=== PATIENT | male | born 1970 | race Caucasian/White ===

== ENCOUNTER 2018-05-13 10:12 | Emergency (ER) | payer OTHER ==
[~2018-05-13] VITALS: Ht 175.3 cm; Wt 97.5 kg
[~2018-05-13 10:12] MED LIST: HYDROCODON-ACE1 EAC7 PO; KEFLEX500 MG PO; LOW DOSE ASPIRI81 M1 PO; MULTIVITAMINS1 EAC7 PO; NOHOMEMEDICATIONS
[2018-05-13 10:16] VITALS: BP 125/77
[2018-05-13 11:09] LABS: ABSOLUTE EOSINOPHILS 0.3 thou/uL (0.0-0.7); ABSOLUTE LYMPHOCYTES 2.2 thou/uL (0.8-5.3); ABSOLUTE MONOCYTES 0.7 thou/uL (0.0-1.2); ABSOLUTE NEUTROPHILS 3.7 thou/uL (1.6-8.1); BASOPHILS 0.6 %; EOSINOPHILS 4.1 %; HEMATOCRIT 44.8 % (42.0-52.0); MCH 30.5 pg (26.0-34.0); MCHC 33.4 g/dL (28.0-37.0); MCV 91.2 fL (80.0-100.0); MPV 8.2 fl. (7.2-11.1); NUCLEATED RBCS 0 /100WBC; PLATELET COUNT* 294 thou/uL (150-400); POLYS 53.3 %; RBC 4.92 mil/uL (4.50-6.00); RDW-CV 12.8 % (10.5-14.5)
[2018-05-13 11:15] LABS: ANION GAP 8 mmol/L (7-16); BUN 17 mg/dL (7-18); CALCIUM 8.5 mg/dL (8.5-10.1); CHLORIDE 105 mmol/L (98-107); CO2 26 mmol/L (21-32); CREATININE 0.8 mg/dL (0.6-1.3); GLUCOSE 118 mg/dL (70-99); POTASSIUM 4.1 mmol/L (3.5-5.1); SODIUM 139 mmol/L (136-145)
[2018-05-13 11:21] LABS: APTT 25.9 Seconds (25.0-31.3)
[2018-05-13 11:24] LABS: ALBUMIN 3.6 g/dL (3.4-5.0); ALKALINE PHOSPHATASE 51 U/L (46-116); LIPASE 193 U/L (73-393); SGOT 29 U/L (15-37); SGPT 45 U/L (30-65); TOTAL BILIRUBIN 0.5 mg/dL (<0.1-1.0); TROPONIN-I LEVEL <0.06 ng/mL (<0.06)
--- NOTE | 2018-05-13 17:05 | EXE ---
[place] [address] STRESS ECHOCARDIOGRAM Name: ALMA DANG [address]#: [id number] Admission: 05/13/18 Attend Phys: Kaitlin Hdz, Discharge: Date of : 68 Date of Service: 05/13/18 1704 Report #: [id number] THIS REPORT FOR: //name// APPROVED REPORT Study performed: 05/13/2018 15:15:51 Exam: Stress Echocardiogram Indication: Chest pain Patient Location: In-Patient Stress Nurse: Inés Iglesias RN Room #: ER Supervising Physician: Ron Terry MD Status: routine Ht: 5 ft 9 in HR: 52 bpm BP: 127/78 mmHg Medical History Cardiac Risk Factors: Tobacco History (Former) Procedure The patient underwent an Exercise Stress Test using the Navdeep Protocol. Blood pressure, heart rate, and EKG were monitored. An Echocardiogram was performed by scheme technician in four stages in quad fashion. At peak stress, four selected images were obtained and placed side by side with resting images for comparison. Stress Test Details Stress Test: Exercise stress testing was performed using a Navdeep protocol. HR Resting HR: 52 bpm Max Heart Rate (APMHR): 171 bpm Max HR Achieved: 158 bpm Target HR (85% APMHR): 145 bpm % of APMHR: 92 Recovery HR: 81 bpm HR response to stress: Normal HR response to stress BP Resting BP: 127/78 mmHg Max BP: 194/82 mmHg Recovery BP: 137/81 mmHg ECG Resting ECG: [place] [address] STRESS ECHOCARDIOGRAM Name: ALMA DANG Room: [address]#: [id number] Admission: 05/13/18 Attend Phys: Kaitlin Hdz, Discharge: Date of : 68 Date of Service: 05/13/18 170 Report #: [id number] Stress ECG: no ischemic st-t changes Clinical Reason for Termination: Dyspnea, Maximal effort, Completed protocol Exercise duration: 9 min 43 sec Highest Stage Achieved: Stage 4: 4.2 mph at 16% grade. Exercise capacity: 11.31 METs Pre-Stress Echo The resting Echocardiogram showed normal left ventricular contractility with an estimated Ejection Fraction of about 55-60%. Normal wall motion in all segments on baseline images. Post-Stress Echo The stress Echocardiogram showed normal left ventricular contractility with an estimated Ejection Fraction of about >70%. Normal augmentation of wall motion in all segments on post stress images. Conclusion Clinical Response: Non-ischemic Exercise Capacity: Average Stress ECG Response: Non-ischemic Stress Echo Images: Non-ischemic Other Information Study Quality: Good <ELECTRONICALLY SIGNED> By: Ron Terry MD, [facility] 05/13/18 1704 03 03 Ron Terry MD, [facility] /INF
[2018-05-13] MEDS ORDERED: PREVACID30 MG PO (17:41)
[2018-05-13] MEDS ORDERED: CARAFATE 1 GM TA1 GM PO (17:41)
[2018-05-13 17:57] LABS: CHOLESTEROL 208 mg/dL (<200); HDL CHOLESTEROL 55 mg/dL (>40); TRIGLYCERIDE 112 mg/dL (<150)
[2018-05-13 18:45] VITALS: BP 124/62
[2018-05-14 15:11] LABS: LDL (DIRECT) CHOL 136 mg/dL (0-99)
--- NOTE | 2018-05-14 16:21 | EKG ---
[place] [address] ELECTROCARDIOGRAM REPORT Name: ALMA DANG Room: [facility]#: [id number] Admission: 05/13/18 Attend Phys: Discharge: 05/13/18 Date of : 68 Report #: [id number] THIS REPORT FOR: //name// [facility] ED Test Date: 2018-05-13 Test Time: 10:17:23 Pat Name: ALMA DANG Department: Room: 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 : 1970 Requested By: Shital Flor Order Number: [id number] MD: Ron Terry Measurements Intervals [place] Rate: 54 P: 34 TN: 202 QRS: -20 QRSD: 89 T: 62 QT: 390 QTc: 370 Interpretive Statements Sinus rhythm Borderline prolonged TN interval Borderline left axis deviation RSR' in V1 or V2, probably normal variant Compared to ECG 01/24/2012 05:47:51 RSR' in V1 or V2 now present Sinus tachycardia no longer present Electronically Signed On 05-14-2018 16:20:58 CDT by Ron Terry [email or web address] <ELECTRONICALLY SIGNED> By: Ron Terry MD, [facility] 05/14/18 1620 1017 1017 Ron Terry MD, [facility] /EPI
== END 2018-05-13 19:00 | disposition home or self-care (01) ==
LOC: M.ERS 10:12 → M.TBA-ER 13:43 → M.ERS 13:43
PROVIDERS: Personal Emergency Response Attendant
DX: R07.9 Chest pain, unspecified (principal)

== ENCOUNTER 2019-04-27 13:26 | Emergency (ER) | payer OTHER ==
[~2019-04-27] VITALS: Ht 175.3 cm; Wt 99.8 kg
[~2019-04-27 13:26] MED LIST changes: +CARAFATE 1 GM TA1 GM PO; +PREVACID30 MG PO
[2019-04-27 13:46] LABS: ABSOLUTE BASOPHILS 0.1 thou/uL (0.0-0.2); ABSOLUTE EOSINOPHILS 0.3 thou/uL (0.0-0.7); ABSOLUTE LYMPHOCYTES 2.3 thou/uL (0.8-5.3); ABSOLUTE MONOCYTES 0.6 thou/uL (0.0-1.2); ABSOLUTE NEUTROPHILS 3.6 thou/uL (1.6-8.1); BASOPHILS 1.1 %; EOSINOPHILS 4.8 %; HEMATOCRIT 42.8 % (42.0-52.0); HEMOGLOBIN 14.7 gm/dL (14.0-18.0); LYMPHOCYTES 33.3 %; MCH 31.1 pg (26.0-34.0); MCHC 34.3 g/dL (28.0-37.0); MCV 90.7 fL (80.0-100.0); MONOCYTES 9.1 %; NUCLEATED RBCS 0 /100WBC; PLATELET COUNT* 280 thou/uL (150-400); POLYS 51.7 %; RBC 4.71 mil/uL (4.50-6.00); RDW-CV 12.9 % (10.5-14.5); WBC 6.9 thou/uL (4.0-11.0)
[2019-04-27 13:57] LABS: APTT 25.6 Seconds (25.0-31.3); PROTIME 10.2 Seconds (9.20-11.50)
[2019-04-27 14:04] LABS: ANION GAP 8 mmol/L (7-16); BUN 20 mg/dL (7-18); CALCIUM 8.3 mg/dL (8.5-10.1); CHLORIDE 104 mmol/L (98-107); CO2 27 mmol/L (21-32); CREATININE 0.9 mg/dL (0.6-1.3); GLUCOSE 126 mg/dL (70-99); POTASSIUM 3.7 mmol/L (3.5-5.1); SODIUM 139 mmol/L (136-145)
[2019-04-27 14:15] LABS: ALBUMIN 3.5 g/dL (3.4-5.0); ALKALINE PHOSPHATASE 77 U/L (46-116); CK-MB MASS 3.4 ng/mL (<0.5-3.6); LIPASE 211 U/L (73-393); MAGNESIUM 1.9 mg/dL (1.8-2.4); NT-PRO BRAIN NAT PEPTIDE 10 pg/mL (<300); SGOT 22 U/L (15-37); SGPT 47 U/L (30-65); TOTAL BILIRUBIN 0.3 mg/dL (<0.1-1.0); TOTAL PROTEIN 6.8 g/dL (6.4-8.2); TROPONIN-I LEVEL <0.06 ng/mL (<0.06)
[2019-04-27 14:29] VITALS: BP 118/62
--- NOTE | 2019-04-27 15:26 | EKG ---
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
== END 2019-04-27 14:30 | disposition home or self-care (01) ==
LOC: M.ERS 13:26
PROVIDERS: Family Medicine
DX: R07.2 Precordial pain (principal)

== ENCOUNTER 2020-08-19 16:24 | Inpatient (IN) | payer OTHER ==
[~2020-08-19] VITALS: Ht 175.3 cm; Wt 98.5 kg
[2020-08-19 16:29] VITALS: BP 142/74
[2020-08-19 16:57] LABS: ABSOLUTE BASOPHILS 0.1 thou/uL (0.0-0.2); ABSOLUTE EOSINOPHILS 0.1 thou/uL (0.0-0.7); ABSOLUTE LYMPHOCYTES 1.5 thou/uL (0.8-5.3); ABSOLUTE MONOCYTES 0.6 thou/uL (0.0-1.2); ABSOLUTE NEUTROPHILS 7.9 thou/uL (1.6-8.1); BASOPHILS 0.7 %; LYMPHOCYTES 14.5 %; MCH 30.9 pg (26.0-34.0); MCV 90.8 fL (80.0-100.0); MONOCYTES 5.7 %; MPV 7.2 fl. (7.2-11.1); NUCLEATED RBCS 0 /100WBC; PLATELET COUNT* 306 thou/uL (150-400); POLYS 78.1 %; RBC 4.85 mil/uL (4.50-6.00); RDW-CV 13.1 % (10.5-14.5); WBC 10.1 thou/uL (4.0-11.0)
[2020-08-19 17:13] LABS: CALCIUM 8.6 mg/dL (8.5-10.1); POTASSIUM 4.1 mmol/L (3.5-5.1)
[2020-08-19 17:18] LABS: ALBUMIN 3.7 g/dL (3.4-5.0); TOTAL BILIRUBIN 0.5 mg/dL (<0.1-1.0); TOTAL PROTEIN 7.1 g/dL (6.4-8.2)
[2020-08-19 18:02] LABS: URINE BILIRUBIN NEGATIVE (Negative); URINE BLOOD TRACE (Negative); URINE CLARITY CLEAR; URINE COLOR YELLOW; URINE GLUCOSE-RANDOM NEGATIVE (Negative); URINE KETONES NEGATIVE (Negative); URINE LEUKOCYTES-REFLEX NEGATIVE (Negative); URINE NITRITE-REFLEX NEGATIVE (Negative); URINE PROTEIN NEGATIVE (Negative); URINE SPECIFIC GRAVITY >= 1.030 (1.005-1.030); URINE UROBILINOGEN 0.2 E.U./dl (0.2-1.0)
[2020-08-19 18:14] LABS: AMP/METHAMP Negative (Negative); BARBITURATES Negative (Negative); BENZODIAZEPINES Negative (Negative); COCAINE Negative (Negative); METHADONE Negative (Negative); OPIATES Negative (Negative); PCP Negative (Negative); THC POSITIVE (Negative)
[2020-08-19 22:30] VITALS: BP 120/75; BP 132/85
[2020-08-20 08:00] VITALS: BP 128/76
[2020-08-20 11:02] LABS: ABSOLUTE BASOPHILS 0.1 thou/uL (0.0-0.2); ABSOLUTE EOSINOPHILS 0.1 thou/uL (0.0-0.7); ABSOLUTE LYMPHOCYTES 1.6 thou/uL (0.8-5.3); ABSOLUTE MONOCYTES 0.8 thou/uL (0.0-1.2); ABSOLUTE NEUTROPHILS 6.3 thou/uL (1.6-8.1); BASOPHILS 0.7 %; EOSINOPHILS 1.6 %; HEMOGLOBIN 14.4 gm/dL (14.0-18.0); LYMPHOCYTES 18.3 %; MCH 30.5 pg (26.0-34.0); MCHC 33.6 g/dL (28.0-37.0); MCV 90.8 fL (80.0-100.0); MONOCYTES 8.7 %; MPV 7.1 fl. (7.2-11.1); NUCLEATED RBCS 0 /100WBC; PLATELET COUNT* 276 thou/uL (150-400); POLYS 70.7 %; RBC 4.73 mil/uL (4.50-6.00); WBC 8.9 thou/uL (4.0-11.0)
[2020-08-20 11:22] LABS: ANION GAP 5 mmol/L (7-16); BUN 11 mg/dL (7-18); CALCIUM 8.4 mg/dL (8.5-10.1); CHLORIDE 104 mmol/L (98-107); CO2 28 mmol/L (21-32); CREATININE 0.8 mg/dL (0.6-1.3); GLUCOSE 120 mg/dL (70-99); POTASSIUM 3.8 mmol/L (3.5-5.1); SODIUM 137 mmol/L (136-145); TROPONIN-I LEVEL <0.06 ng/mL (<0.06)
[2020-08-20 12:00] VITALS: BP 128/82
--- NOTE | 2020-08-20 14:06 | EKG ---
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: : 1970 Requested By: Delfina Madrigal Order Number: [id number] MD: Mandeep Ratliff Measurements Intervals [place] Rate: 61 P: 31 MD: 192 QRS: -30 QRSD: 93 T: 63 QT: 382 QTc: 385 Interpretive Statements Sinus rhythm Left axis deviation Compared to ECG 04/27/2019 13:29:26 Left-axis deviation now present Electronically Signed On 08-20-2020 14:06:15 PLATE SHEAR OPERATOR by Mandeep Ratliff [email or web address] <ELECTRONICALLY SIGNED> By: Ruby Ratliff MD, FACC 08/20/20 1406 1647 1647 Ruby Ratliff MD, [facility] /EPI
[2020-08-20 16:00] VITALS: BP 130/76
--- NOTE | 2020-08-20 16:49 | NUR ---
OSBALDO RESTING IN BED. VSS. HE HAS HAD SEVERAL BOUTS OF "CHECKING OUT" TODAY. NEURO CONSULTATION APPRECIATED AND EEG COMPLETED. HOURLY ROUNDING COMPETED FOR PATIENT SAFETY.
[2020-08-20 19:30] VITALS: BP 119/82
[2020-08-21] VITALS (7 sets, daily range): BP systolic 98–136; BP diastolic 60–88
--- NOTE | 2020-08-21 06:06 | NUR ---
ASSUMED CARE OF PT AFTER REPORT AT 1930. PT A&OX4. VSS. PHYSICAL ASSESSMENT COMPLETED AND CHARTED. PT ON RA. PT TRACING SR /SB ON TELE. PT UPSTANDBY TO RESTROOM. PT DENIES PAIN. SEIZURE PRECATION IN PLACE. STARTED ON SEIZURE MEDICATION ORDERED. FALL PRECAUTIONS IN PLACE. CALL LIGHT WITHIN REACH.
--- NOTE | 2020-08-21 13:31 | NUR ---
Pt is A&O. Resides at home with his and kids. Independent and active. No DME. No hx of HH or SNF. Goal is home at dc, no needs anticipated. Pt to have MRI today. Anticipate dc tomorrow.
--- NOTE | 2020-08-21 20:30 | NUR ---
RECEIVED REPORT AND ASSUMED CARE OF PT AT 1930. ASSESSMENT COMPLETED AT THIS TIME. STATES STILL HAVING THE BLANKING OUT SEIZURES. SIDERAILS PADDED. TELEMETRY ON SHOWING SR. WILL CONT TO MONITOR AND ASSIST NEEDED.
[2020-08-22 04:00] VITALS: BP 110/59
--- NOTE | 2020-08-22 07:04 | NUR ---
SLEPT WELL AFTER MN. DOES NOT STATE IF HE HAS HAD ANY FURTHER BLANK OUT SEIZURES. SBA TO BR AND BACK, STEADY. TELEMETRY SHOWING SB WITH 1ST AVB WHILE SLEEPING. HS GOALS OF REST AND SAFETY ACHIEVED.
[2020-08-22 08:00] VITALS: BP 115/70
--- NOTE | 2020-08-22 09:02 | NUR ---
ASSUMED CARE OF PT THIS AM AROUND 0715- CONSTRUCTION CARPENTERS HELPER IN PLACE ORDERED, TRACING SB- UPON ASSESSMENT PT NOTED TO BE RESTING IN BED, WATCHING TV- PT A&O X4- REPORTS TO NOT HAVE GOTTEN MUCH SLEEP OVER NIGHT AND IS FEELING CRUMMY THIS AM- CONT OF B/B- SBA WITH TRANSFERS FOR SAFETY- LCTA, RESP EVEN AND UN-LABORED- VSS, O2 SAT 96% ON RA- SEIZURES PRECAUTIONS IN PLACE INDICATED- PT REPORTS NO SPEELS SO FAR THIS AM- IV NOTED TO RIGHT FA INTACT AND SL- POOR APPETITE REPORTED THIS AM- DENIES ANY C/O PAIN/DISCOMFORT AT THIS TIME- CALL LIGHT AND PERSONAL BELONGINGS WITH IN REACH- ALL NEEDS MET AT THIS TIME-WCTM
[2020-08-22 11:00] VITALS: BP 103/64; BP 128/78
--- NOTE | 2020-08-22 14:03 | NUR ---
On shilpi, working to get therapeutic. Anticipate dc to home tomorrow.
[2020-08-22 16:58] VITALS: BP 136/80
[2020-08-22 18:50] LABS: HEMOGLOBIN 15.7 gm/dL (14.0-18.0); MCH 30.3 pg (26.0-34.0); MCHC 33.4 g/dL (28.0-37.0); MCV 90.8 fL (80.0-100.0); MPV 7.6 fl. (7.2-11.1); RBC 5.17 mil/uL (4.50-6.00); WBC 12.5 thou/uL (4.0-11.0)
[2020-08-22 19:06] LABS: ALBUMIN 3.6 g/dL (3.4-5.0); CALCIUM 8.7 mg/dL (8.5-10.1); CREATININE 0.8 mg/dL (0.6-1.3); POTASSIUM 3.8 mmol/L (3.5-5.1); TOTAL BILIRUBIN 0.5 mg/dL (<0.1-1.0); TOTAL PROTEIN 7.4 g/dL (6.4-8.2)
[2020-08-22 20:00] VITALS: BP 126/67
--- NOTE | 2020-08-22 20:00 | NUR ---
RECEIVED REPORT AND ASSUMED CARE OF PT, ASSESSMENT COMPLETED. PT STATES HE IS JUST TIRED. TIRED OF THE BED, TIRED OF FEELING BAD FROM THE MEDICATION, AND TIRED OF BEING HERE. PLEASANT ABOUT THIS AND KNOWS THIS IS WHERE HE NEEDS TO BE. TELEMETRY ON SHOWING SR. WILL CONT TO MONITOR AND ASSIST NEEDED.
--- NOTE | 2020-08-22 21:30 | NUR ---
PT STATES HE HAD ANOTHER ABSENCE SPELL. STATES FELT LIKE MOSTLY THE LEFT SIDE WAS EFFECTED. SIDE RAILS PADDED. WILL CONT TO MONITOR.
[2020-08-23 00:17] VITALS: BP 107/78
--- NOTE | 2020-08-23 06:30 | NUR ---
RESTLESS NIGHT, STATES HE JUST DOESN'T FEEL GOOD AND ASKING IF IT WILL GET BETTER. NO FURTHER EPISODES OF SEIZURES. GAIT STEADY TO AND FROM BR. TELEMETRY CONT TO SHOW SR. NO CHANGES IN ASSESSMENT. HS GOAL OF SAFETY ACHIEVED.
[2020-08-23 07:56] VITALS: BP 120/79
--- NOTE | 2020-08-23 09:54 | NUR ---
ASSUMED CARE OF PT THIS AM AROUND 07- HALF BACKER IN PLACE ORDERED, TRACING SR- UPON ASSESSMENT PT NOTED TO BE RESTING IN BED- PT A&O X4- CONT OF B/B- SBA WITH TRANSFERS FOR SAFETY- LCTA/DIMINISHED IN BASES- VSS, O2 SAT 96% ON RA- ABD SOFT/ROUND/NON-TENDER, BS X4 QUADS- LAST BM REPORTED 08/22/20- IV NOTED TO LEFT FA INTACT AND SL- GOOD PO INTAKE NOTED THIS AM WITH BREAKFAST- PRN ZOFRAN X1 THIS AM FOR REPORTS OF NAUSEA- PT REPORTS TO NOT HAVE HAD ANY EPISODES THIS AM, BUT STILL IS NOT FEELING WELL- NO C/O PAIN/DISCOMFORT AT THIS TIME- CALL LIGHT AND PERSONAL BELONGINGS WITH IN REACH- ALL NEEDS MET AT THIS TIME-WCTM
[2020-08-23 12:42] VITALS: BP 116/83
--- NOTE | 2020-08-23 13:56 | NUR ---
Neuro following. Possible dc home tomorrow.
--- NOTE | 2020-08-23 16:14 | NUR ---
CM spoke with neuro, neuro recommending that Pt be transferred to [facility] or for a video monitored EEG, neuro's preference is [facility]. CM contacted [facility] transfer team p:[phone], will fax facesheet and copy of ins cards to [phone]. Neuro to complete p2p, neuro contact info provided to transfer team. CM initiated EMTALA and ambulance forms, on front of Pt's chart. Updated U/s and House Sup of possible transfer. Await [facility]'s decision to accept, if they are unable to, transfer team will need to be contacted at p:[phone]. Pt aware of the possible transfer, on her way to the hospital. OLAF updated Pt's hospitalist.
[2020-08-23 17:27] VITALS: BP 118/83
[2020-08-24 04:00] VITALS: BP 129/77
[2020-08-24 08:04] VITALS: BP 111/75
--- NOTE | 2020-08-24 08:37 | NUR ---
CM contacted [facility] transfer team, they were at capacity yesterday and could not accept and remain at capacity today. CM contacted transfer team, they are currently at capacity, CM will try back later this afternoon. CM contacted [facility] transfer team, [facility] has video monitored EEGs but they are at capacity for transfers, transfer team to check to see if [facility] is accepting Pts. CM faxed referral, awaiting decision to accept Pt for transfer. [facility] transfer team p:[phone] f:[phone] transfer team p:[phone]
--- NOTE | 2020-08-24 11:23 | NUR ---
ASSUMED CARE OF PT THIS AM AROUND 0715- REHABILITATION ATTENDANT IN PLACE ORDERED, TRACING SR- UPON ASSESSMENT PT NOTED TO BE RESTING IN BED- PT A&O X4- CONT OF B/B- SBA WITH TRANSFERS FOR SAFETY, SEIZURE PRECAUTIONS IN PLACE INDCIATED- LCTA, RESP EVEN AND UN-LABORED- VSS, O2 SAT 97% ON RA- ABD SOFT/ROUND/NON-TENDER, BS X4 QUADS- LAST BM REPORTED 08/23/20- IV NOTED TO LEFT FA INTACT AND SL- MRI COMPLETED THIS AM ORDEREDM, RESULTS PENDING- ORDERS RECEIVED PER FOR DILANTIN 500MG X1 WITH DILANTIN LAB DRAW FOR 1500- PT REPORTS A COUPLE OF SPEELS THIS AM, BUT REPORTS TO SMALLED IN DURRATION OF ABOUT 10 SEC- DENIES ANY PAIN- CALL LIGHT AND PERSONAL BELONGINGS WITH IN REACH- ALL NEEDS MET AT THIS TIME-WCTM
[2020-08-24 12:00] VITALS: BP 127/86
[2020-08-24 13:54] LABS: HEMOGLOBIN 16.4 gm/dL (14.0-18.0); MCH 30.9 pg (26.0-34.0); MCHC 34.2 g/dL (28.0-37.0); MCV 90.2 fL (80.0-100.0); MPV 7.5 fl. (7.2-11.1); RBC 5.32 mil/uL (4.50-6.00); RDW-CV 12.7 % (10.5-14.5); WBC 9.8 thou/uL (4.0-11.0)
[2020-08-24 14:03] LABS: CALCIUM 8.6 mg/dL (8.5-10.1)
[2020-08-24 14:06] LABS: APTT 23.4 Seconds (25.0-31.3); PROTIME 10.5 Seconds (9.20-11.50)
[2020-08-24 14:08] LABS: ALBUMIN 3.6 g/dL (3.4-5.0); MAGNESIUM 2.3 mg/dL (1.8-2.4); TOTAL BILIRUBIN 0.3 mg/dL (<0.1-1.0); TOTAL PROTEIN 7.2 g/dL (6.4-8.2)
[2020-08-24 16:00] VITALS: BP 92/56
--- NOTE | 2020-08-24 16:47 | 2DMMODE ---
[place] [address] 2 D/M-MODE ECHOCARDIOGRAM Name: DANGALMA M Room: [address] ADM IN .R.#: [id number] Admission: 08/21/20 Attend Phys: Moriah Zelaya Discharge: Date of : 68 Date of Service: 08/24/20 1646 Report #: [id number] THIS REPORT FOR: cc: FAM - No family physician/PCP FAM - No family physician/PCP Ron Terry MD [facility] ~ APPROVED REPORT Study performed: 08/24/2020 10:38:28 EXAM: Comprehensive 2D, Doppler, and color-flow Echocardiogram Patient Location: In-Patient Room #: [facility] Status: routine BSA: 2.16 HR: 66 bpm BP: 111/75 mmHg Rhythm: NSR Other Information Study Quality: Good Indications Syncope 2D Dimensions IVSd: 12.02 (7-11mm) LVOT Diam: 22.09 (18-24mm) LVDd: 43.44 mm PWd: 10.69 (7-11mm) Ascending Ao: 35.13 (22-36mm) LVDs: 29.40 (25-40mm) Aortic Root: 38.15 mm Volumes Left Atrial Volume (Systole) LA ESV Index: 19.30 mL/m2 Aortic Valve AoV Peak Kevin.: 1.31 m/s AO Peak Gr.: 6.84 mmHg LVOT Max P.21 mmHg AO Mean Gr.: 3.66 mmHg LVOT Mean P.42 mmHg LVOT Max V: 1.14 m/s AO V2 VTI: 21.47 cm LVOT Mean V: 0.71 m/s JERAD (VTI): 3.54 cm2 LVOT V1 VTI: 19.85 [place] [address] 2 D/M-MODE ECHOCARDIOGRAM Name: ALMA DANG Room: [address] IN M.R.#: [id number] Admission: 08/21/20 Attend Phys: Moriah Zelaya Discharge: Date of : 68 Date of Service: 08/24/20 1646 Report #: [id number] Mitral Valve E/A Ratio: 0.92 MV Decel. Time: 285.93 ms MV E Max Kevin.: 0.53 m/s MV PHT: 82.92 ms MVA (PHT): 2.65 cm2 TDI E/Lateral E': 5.30 E/Medial E': 6.63 Medial E' Kevin.: 0.08 m/s Lateral E' Kevin.: 0.10 m/s Pulmonary Valve PV Peak Kevin.: 0.87 m/s PV Peak Gr.: 3.03 mmHg Left Ventricle The left ventricle is normal size. There is normal LV segmental wall motion. There is normal left ventricular wall thickness. Left ventricular systolic function is normal. The left ventricular ejection fraction is within the normal range. LVEF is 55-60%. Grade I - abnormal relaxation pattern. Right Ventricle The right ventricle is normal size. The right ventricular systolic function is normal. Atria The left atrium size is normal. The right atrium size is normal. Aortic Valve The aortic valve is normal in structure. No aortic regurgitation is present. There is no aortic valvular stenosis. Mitral Valve The mitral valve is normal in structure. There is no mitral valve regurgitation noted. No evidence of mitral valve stenosis. Tricuspid Valve The tricuspid valve is normal in structure. Trace tricuspid regurgitation. No pulmonary hypertension. Pulmonic Valve The pulmonary valve is normal in structure. There is no pulmonic [place] [address] 2 D/M-MODE ECHOCARDIOGRAM Name: ALMA DANG Room: [address] IN [facility]#: [id number] Admission: 08/21/20 Attend Phys: Moriah Zelaya Discharge: Date of : 68 Date of Service: 08/24/20 1646 Report #: [id number] Great Vessels The aortic root is normal in size. IVC is normal in size and collapses >50% with inspiration. Pericardium There is no pericardial effusion. <Conclusion> The left ventricle is normal size. There is normal left ventricular wall thickness. Left ventricular systolic function is normal. The left ventricular ejection fraction is within the normal range. LVEF is 55-60%. Grade I - abnormal relaxation pattern. The right ventricle is normal size. The left atrium size is normal. The aortic valve is normal in structure. The mitral valve is normal in structure. The tricuspid valve is normal in structure. IVC is normal in size and collapses >50% with inspiration. There is no pericardial effusion. There is normal LV segmental wall motion. <ELECTRONICALLY SIGNED> By: Ron Terry MD, FACC 08/24/20 1646 164 1646 Ron Terry MD, FACC /INF
[2020-08-25 04:00] VITALS: BP 105/59
[2020-08-25 04:30] VITALS: BP 95/45
[2020-08-25 08:00] VITALS: BP 115/70
--- NOTE | 2020-08-25 08:00 | NUR ---
AM ASSESSMENT COMPLETE, DEFER TO COMPUTER CHARTING. NIGHT MANAGER TRACKING SR. ALERT ORIENTED. DENIES DIZZINESS, PAIN, HEADACHE, TINGLING OF EXTREMITIES OR ANY DISCOMFORT AT THIS TIME. NO SEIZURE ACTIVITY NOTED. INSTRUCTED TO CALL NURSING PROMPTLY IF HAVING ANY CHANGE IN CONDTION OR CONCERNS. NPO FOR TEST/PROCEDURE. CALL LIGHT WITHIN REACH. WILL MONITOR.
--- NOTE | 2020-08-25 11:24 | NUR ---
Pt to have spinal tap today. No CM needs at ar.
[2020-08-25 12:00] VITALS: BP 110/77
--- NOTE | 2020-08-25 13:30 | NUR ---
TO RADIOLOGY VIA BED FOR LUMBAR PUNCTURE.
[2020-08-25 15:31] LABS: CSF GLUCOSE 61 mg/dl (40-70)
[2020-08-25 16:00] VITALS: BP 110/70
[2020-08-25 16:03] LABS: CSF CLARITY CLEAR; CSF COLOR COLORLESS; CSF WBC 1 /mm3 (0-10); VOLUME 11 ml
[2020-08-25 16:04] LABS: CSF RBC 2 /mm3
--- NOTE | 2020-08-25 16:42 | NUR ---
RACE RELATIONS ADVISER TRACKIG WITH NO CHANGE IN RHYTHM. NO SEIZURE ACTIVITY NOTED DURING SHIFT. LUMBAR PUNCTURE COMPLETED EARLIER - REMAIN ON BEDREST. PATIENT JUST HAD SM EPISODE OF STARE/FOGGY FEELING - STATES HAPPENING AGAIN, JUST LASTED ABOUT MAYBE 5 SECONDS THEN SYMPTOMS GONE - BP AT THIS WAS 90/30 P 96, THEN AFTER EPISOPE BP RETAKEN WITH RESULT OF 110/70 P 80. PATIENT REPORTING FEELING BETTER, ANXIOUS. RESSSURANCE GIVEN - CALL LIGHT WITHIN REACH. WILL MONITOR.
--- NOTE | 2020-08-25 17:25 | NUR ---
PATIENT HAD ANOTHER SEIZURE EPISODE - UN WITNESS BY NURSING. PATIENT ANXIOUS STATING THIS IS THE WORSE ONE HE HAS HAD - STATES UNABLE TO MOVE AT ALL OR TALK - IN ROOM WITNESS SEIZURE STATING LASTING APPROX [address] WILCOX TO NOTIFY.
--- NOTE | 2020-08-25 19:08 | NUR ---
TO CT EARLIER VIA BED - PATIENT REPORTING CHEST DISCOMFORT DURING THIS TIME IN RADIOLOGY. ORDERS RECEIVED - CARDIOLOGY CONSULTED. EKG OBTAINED PLACED ON FRONT OF CHART. CHEST PAIN RESOLVED. WILL MONITOR.
[2020-08-26 03:27] VITALS: BP 121/73
[2020-08-26 04:04] LABS: CREATININE 0.9 mg/dL (0.6-1.3); HEMOGLOBIN 14.5 gm/dL (14.0-18.0); MAGNESIUM 2.3 mg/dL (1.8-2.4); MCH 30.3 pg (26.0-34.0); MCHC 33.6 g/dL (28.0-37.0); MCV 90.3 fL (80.0-100.0); MPV 7.5 fl. (7.2-11.1); POTASSIUM 3.9 mmol/L (3.5-5.1); RBC 4.77 mil/uL (4.50-6.00)
[2020-08-26 08:00] VITALS: BP 104/74
--- NOTE | 2020-08-26 09:47 | CON ---
[address] [address] CONSULTATION Name: ALMA DANG Room: [address] ADM IN M.R.#: [id number] Admission: 08/21/20 Attend Phys: Farhat Courtney Discharge: Date of : 68 Report #: [id number] THIS REPORT FOR: cc: FAM - No family physician/PCP FAM - No family physician/PCP ~ Clemente Espana MD [facility] DATE OF SERVICE: 08/26/2020 CARDIOLOGY CONSULTATION HISTORY OF PRESENT ILLNESS: The patient is a 50-year-old white male who I was asked to see in the hospital today after he had an episode of confusion. History was obtained from the patient as well as the current records. There are no family members available. The patient denies previous history of heart disease. He actually came to the Emergency Room a week ago. His brought him in. He was having recurrent episodes of confusion, lightheadedness, weakness. There was no seizure activity, biting of tongue, syncope. He was felt to be having a seizure. He was seen by Neurology. He was tried on seizure medications. He has been in the hospital for a week now. Yesterday, he again had an episode of confusion and lightheadedness. He felt lightheaded. Cardiology consultation requested. The patient's current diagnoses are possible encephalopathy, possible encephalitis. He has been treated with seizure medications. He does have occasional chest squeezing, although it is nonexertional, not related to food. There is no radiation of the pain. He has had no bleeding, cough or fever. He does get short of breath and exerts himself, but has had no palpitations or syncope. PAST MEDICAL HISTORY: Has had tonsillectomy, knee surgery. Apparently a few years ago, he had a pneumothorax. He was transferred to [facility] in [facility], had a chest tube, but eventually underwent thoracoplasty, no history of hypertension, diabetes, hyperlipidemia. MEDICATIONS: He is on no chronic medications. ALLERGIES: He has no known drug allergies. FAMILY HISTORY: His grandfather of heart disease. SOCIAL HISTORY: He is . He and his live here in [place]. 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 He smokes 2 packs of cigarettes a day, 6-pack of beer a day, smokes marijuana occasionally. No other illicit drugs. No IV drug abuse. REVIEW OF SYSTEMS: No history of stroke, asthma, liver disease, kidney disease, cancer, psychiatric illness, [place] [address] CONSULTATION Name: ALMA DANG Room: [address]#: [id number] Admission: 08/21/20 Attend Phys: Farhat Courtney Discharge: Date of : 68 Report #: [id number] PHYSICAL EXAMINATION: GENERAL: Revealed a middle-aged male, lying in bed. He appeared in no distress. VITAL SIGNS: His blood pressure is 110/70, his pulse is 70, he was afebrile. HEENT: He was anicteric. Conjunctivae are pink. Mucous membranes moist. NECK: Veins do not appear distended. No carotid bruits. Neck supple. CHEST: Clear to auscultation. CARDIOVASCULAR: Regular rate and rhythm without murmur. ABDOMEN: Soft. EXTREMITIES: Had no edema. Posterior pulse 2+ bilaterally. SKIN: Cool and dry. NEUROLOGIC: Nonfocal. LABORATORY DATA: His ECG shows a sinus rhythm. There is no significant ST or T-wave change noted. On the monitor, he appears to be in the sinus rhythm. His workup over the past week included an echocardiogram that showed normal left ventricular function, no significant valvular abnormalities, no pericardial effusion. The patient actually had a stress echocardiogram done 2 years ago here at [place] as an outpatient that showed no evidence of ischemia. His workup since he has been here a week ago, he had a CT scan of the head without contrast that showed no acute abnormalities. Chest x-ray showed no acute abnormalities. He has an MRI of the head without contrast that showed no acute abnormalities. He had a CTA of the neck that was unremarkable. On his lab work, he actually had a lumbar puncture with CSF fluid examination that showed clear fluid, minimal cells. His creatinine is 0.9, potassium 3.9. Liver function studies are normal. Magnesium 2.3. Troponins all 0.06. BNP 19. The patient had a previous LDL in 2018 that was 136. TSH 1.8. His white blood cell count 8.0, hemoglobin 14.5. IMPRESSION AND RECOMMENDATIONS: 1. Episode of confusion. Possible seizure. 2. Chest pressure. Atypical for angina. Stress echocardiogram 2 years ago showed no ischemia. Recommend no further cardiac evaluation. Suspect noncardiac. 3. Tobacco abuse. 4. History of excessive alcohol intake. 5. History of thoracoplasty following pneumothorax. 6. Hyperlipidemia. Recommend diet and exercise. <ELECTRONICALLY SIGNED> By: Clemente Espana MD, [facility] 08/26/20 0947 [id number] Espana MD, FACC /nt
--- NOTE | 2020-08-26 11:26 | NUR ---
RECIEVED REPORT AROUND 0730. ASSUMED CARE. PT LYING IN BED THIS AM. IV INTACT. HEART MONITOR ATTCHED AT SR. PT STATED "NO" TO ANY PAIN. MEDS GIVEN PER NOV. VS AND ASSESSMENT CHARTED. CALL LIGHT WITHIN REACH. WILL CONTINUE TO MONITOR.
[2020-08-26 12:54] VITALS: BP 128/64
--- NOTE | 2020-08-26 18:20 | NUR ---
PT LYING IN BED. VISITED THIS SHIFT. IV INTACT RIGHT AC. HEART MONITOR ATTACHED AT . MEDS GIVEN PER NOV. NO PAIN REPORTED THIS SHIFT. HOURLY ROUNDING PERFORMED. SEIZURE PRECAUTIONS INTACT. BED RAILS WRAPPED. CALL LIGHT WITHIN REACH. WILL CONTINUE TO MONITOR.
[2020-08-26 18:45] VITALS: BP 141/62
[2020-08-27] VITALS: BP 104/62
[2020-08-27 04:51] LABS: HEMATOCRIT 43.6 % (42.0-52.0); HEMOGLOBIN 14.8 gm/dL (14.0-18.0); MCH 30.5 pg (26.0-34.0); MCV 89.8 fL (80.0-100.0); MPV 7.5 fl. (7.2-11.1); RBC 4.86 mil/uL (4.50-6.00); RDW-CV 13.1 % (10.5-14.5); WBC 8.1 thou/uL (4.0-11.0)
[2020-08-27 05:27] LABS: ALBUMIN 3.2 g/dL (3.4-5.0); CREATININE 0.8 mg/dL (0.6-1.3); POTASSIUM 3.9 mmol/L (3.5-5.1); TOTAL BILIRUBIN 0.3 mg/dL (<0.1-1.0); TOTAL PROTEIN 6.5 g/dL (6.4-8.2)
[2020-08-27 08:09] VITALS: BP 111/71
--- NOTE | 2020-08-27 11:15 | NUR ---
ASSUMED CARE OF PT THIS AM AROUND 0715- PALM AND BACK FORGER IN PLACE ORDERED, TRACING SR- UPON ASSESSMEN PT NOTED TO BE RESTING IN BED, WATCHING TV- PT A&O X4- CONT OF B/B- SBA WITH TRANSFERS FOR SAFETY- SEIZURE PRECAUTIONS IN PLACE INDICATED- LCTA, RESP EVEN AND UN-LABORED- VSS, O2 SAT 94% ON RA-ABD SOFT/ROUND/NON-TENDER, BS X4 QUADS- BM REPORTED THIS AM- GOOD PO INTAKE NOTED THIS AM- ISELA NPO FOR PLANNED CTA THIS AFTERNOON- IV NOTED TO RIGHT AC INTACT, IVF STARTED THIS AM PER ORDERS- PT DENIES ANY C/O PAIN/DISCOMFORT AT THIS TIME- CALL LIGHT AND PERSONAL BELONGINGS WITH IN REACH- ALL NEEDS MET AT THIS TIME-WCTM
[2020-08-27 11:58] VITALS: BP 121/60
[2020-08-27 15:06] LABS: HSV 1 DNA Negative (Negative); HSV 2 DNA Negative (Negative)
[2020-08-27 15:50] VITALS: BP 117/60
[2020-08-27 20:00] VITALS: BP 120/66
--- NOTE | 2020-08-27 22:39 | NUR ---
DR CASEY PLACED ORDER IN NURSING TO FIND OUT ABOUT LABS. ACCORDING TO DK IN LAB THE ORINGINAL ORDER IS STILL COMPLETED OR PENDING. THE IGG AND [facility] ARE STILL PROCESSING THROUGH LAB CORE. THERE WAS THE INITAL ORDERS THAT WERE NEVER CANCLLED. APPARENTLY THERE WAS A SECOND TIME THE ORDERS WERE ENTERED AND HAD TO BE CANCLLED BECAUSE THEY WERE DUPLICATE.
[2020-08-27 23:46] VITALS: BP 137/70
--- NOTE | 2020-08-28 03:27 | NUR ---
PT ALERT ORIENTED. UP AD ESTEBAN IN ROOM. PT DENIES SEIZURE ACTIVITY DURING THE PREVIOUS AND PRESENT SHIFT. DENIES PAIN. TELEMETRY SHOWS SR/SB. NS FINISHED AND WAS SALINE LOCKED. PT TALKED ABOUT WANTING TO GET HOME TO GRANDCHILDREN. WCTM
[2020-08-28 04:50] LABS: CALCIUM 8.6 mg/dL (8.5-10.1); CREATININE 0.7 mg/dL (0.6-1.3); MAGNESIUM 2.3 mg/dL (1.8-2.4); POTASSIUM 3.8 mmol/L (3.5-5.1)
[2020-08-28 04:59] VITALS: BP 108/70
[2020-08-28] MEDS ORDERED: PHENYTOIN SODI300 MG PO (07:49)
[2020-08-28] MEDS ORDERED: KEPPRA 500 MG500 M1 PO (07:49)
[2020-08-28 08:03] VITALS: BP 104/68
[2020-08-28 12:00] VITALS: BP 126/72
[2020-08-28] MEDS ORDERED: DILANTIN100 MG PO (12:48)
[2020-08-28] MEDS ORDERED: TRILEPTAL300 MG PO (12:48)
[2020-08-28 13:14] VITALS: BP 104/68
[2020-08-28 13:20] VITALS: BP 104/68
--- NOTE | 2020-08-28 13:54 | NUR ---
OKAY FOR D/C NOTED PER THIS SHIFT IF OKAY WITH NEURO AND ID THIS SHIFT- ID CONSULTED AND SPOKE WITH WHOM STATES THEY HAVE NOTHING FURTHER TO ADD AND OKAY FOR D/C OF PT- NEURO HERE WITH ONE X DOSE ORDERED ADN GIVEN FOR DILANTIN 200MG- WRITTEN COMMUNICATION PER R/T MEDICATIONS FOR D/C NOTED AND COMMUNICATED TO AND UPDATED IN NOV FOR D/C- [facility] TO BE DRAW ON 08/30 WITH ORDER WRITTEN AND FAXED TO LAB AND COPY SENT WITH PT TO FOLLOW THROUGH- IV D/C'D TO RIGHT AC ALONG WITH PLUG MAKING OPERATOR PRIOR TO D/C- D/C EDUCATION/TEACHING/NEEDED FOLLOW UP'S COMMUNICATED TO PT WITH VERBAL UNDERSTANDING NOTED PER PT- BELONGINGS PACKED AND ACCOUNTED FOR PER PT- PT CURRENLTY DRESSED AND AWAITTING RIDE FOR D/C- ALL NEEDS MET AT THIS TIME-WCTM
--- NOTE | 2020-08-28 14:06 | EKG ---
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: MAC : 1970 Requested By: Ron Blue Order Number: [id number] Dillan MD: Clemente Espana Measurements Intervals [place] Rate: 80 P: 12 [place]: 174 QRS: -51 QRSD: 90 T: 59 QT: 367 QTc: 424 Interpretive Statements Sinus rhythm Left axis deviation Compared to ECG 08/25/2020 18:32:48 no change Electronically Signed On 08-28-2020 14:06:35 COST ESTIMATOR by Clemente Espana [email or web address] <ELECTRONICALLY SIGNED> By: Clemente Espana MD, [facility] 08/28/20 1404 1833 1833 Clemente Espana MD, [facility] /EPI
--- NOTE | 2020-08-28 14:06 | EKG ---
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
--- NOTE | 2020-08-28 14:06 | EKG ---
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 /EPI
--- NOTE | 2020-08-28 14:07 | EKG ---
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 : 1970 Requested By: Moriah Zelaya Order Number: [id number] Reading MD: Clemente Espana Measurements Intervals [place] Rate: 73 P: 26 [place]: 172 QRS: -53 QRSD: 92 T: 71 QT: 375 QTc: 414 Interpretive Statements Sinus rhythm LAD, consider left anterior fascicular block Abnormal R-wave progression, early transition Compared to ECG 08/25/2020 18:33:34 no change Electronically Signed On 08-28-2020 14:07:06 LINE ASSIGNER by Clemente Espana [email or web address] <ELECTRONICALLY SIGNED> By: Clemente Espana MD, FACC 08/28/20 1407 1836 1836 Clemente Espana MD, [facility] /EPI
[2020-08-28 14:45] VITALS: BP 104/68
[2020-08-29 12:06] LABS: CSF ALBUMIN 43 mg/dL (11-48); CSF IgG 5.1 mg/dL (0.0-8.6)
--- NOTE | 2020-09-01 13:51 | EEG ---
[address] [address] EEG STUDY REPORT Name: ALMA DANG Room: [address] IN M.R.#: [id number] Admission: 08/21/20 Attend Phys: Farhat Courtney Discharge: 08/28/20 Date of : [birth year] Report #: [id number] THIS REPORT FOR: cc: FAM - No family physician/PCP FAM - No family physician/PCP ~ Talon Daniels MD DATE OF SERVICE: 08/21/2020 This patient is being evaluated for an episode of syncope. EEG was done by placing the electrode by standard 10-20 system of electrode placement. Both referential and sequential montages were used for recording. Background activity in this patient's EEG is about 9 Hz and 30 microvolt. An episode was noted and that appeared to be showing delta range, paroxysmal slowing in the frontal area, especially on the left side. Photic stimulation is unremarkable. The patient went to sleep that is associated with bilateral slowing and vertex sharp waves. IMPRESSION AND PLAN: This patient appears to have an episode which looks like an episode of seizure. Clinical correlation is recommended as a lot of artifact is present, it is difficult to be certain. <ELECTRONICALLY SIGNED> By: Talon Daniels MD 09/01/20 1351 07 2037Talon Daniels MD /julissa
--- NOTE | 2020-09-01 13:51 | EEG ---
[address] [address] EEG STUDY REPORT Name: ALMA DANG Room: [address] IN M.R.#: [id number] Admission: 08/21/20 Attend Phys: Farhat Courtney Discharge: 08/28/20 Date of : 68 Report #: [id number] THIS REPORT FOR: cc: FAM - No family physician/PCP FAM - No family physician/PCP ~ Talon Daniels MD DATE OF SERVICE: 08/23/2020 This patient is being evaluated for seizure. EEG was done by placing the electrode by standard 10-20 system of electrode placement. Both referential and sequential montages were used for recording. Background activity is about 11 Hz and 40 microvolt. This patient became drowsy and that is associated with bilateral slowing and vertex sharp waves. Photic stimulation is unremarkable. Throughout the record, no active epileptiform activity was noticed. IMPRESSION: This EEG does not demonstrate any clear-cut epileptiform activity. Thank you very much for this referral. <ELECTRONICALLY SIGNED> By: Talon Daniels MD 09/01/20 1351 1805 1822Pmanan Daniels MD /nt
--- NOTE | 2020-09-01 13:51 | CON ---
[address] [address] CONSULTATION Name: ALMA DANG Room: [address] IN M.R.#: [id number] Admission: 08/21/20 Attend Phys: Farhat Courtney Discharge: 08/28/20 Date of : 68 Report #: [id number] THIS REPORT FOR: cc: FAM - No family physician/PCP FAM - No family physician/PCP ~ Talon Daniels MD DATE OF SERVICE: 08/21/2020 HISTORY OF PRESENT ILLNESS: This is a 50-year-old male patient who was evaluated by me for the possibility of seizure. Starting this weekend. this patient is having multiple episodes where he become dazed and feels like passing out. He almost passes out. He underwent an MRI, which was unremarkable. I looked at his EEG and it does appear to be showing a possible seizure activity from the frontal area. It is difficult to tell from the artifact for sure. He said he had these episodes before, but they were not very prominent. REVIEW OF SYSTEMS: A 14-point review of system was carried out and it is mostly unremarkable. He said he is not under stress. He is taking care of couple of grand kids because his daughter was killed in a road rage, but he did not think that can cause him much stress. PAST MEDICAL HISTORY: Positive for similar episode. SOCIAL HISTORY: He drinks about 6 beers a day. He does not smoke cigarettes, but smokes marijuana. PHYSICAL EXAMINATION: Neurologically he is alert, responsive, able to follow simple and complex command. Cranial nerve examinations appear unremarkable. There is no focal deficit, no meningeal sign, no carotid bruit. Cardiac examinations appear unremarkable. Respiratory examination is also unremarkable. LABORATORY DATA: Indicate a normal white count and but his cholesterol is high. His blood pressure is okay now, but at one time, it was 98/60. That is somewhat on the lower side. IMPRESSION: This patient's clinical presentation is consistent with a seizure. He said he is having more frequent seizures in spite of Keppra. I am concerned about that and concerned that he may go to grand mal seizure or status. I had a long discussion with the patient. I discussed with him the option. My plan is to go ahead and give him Dilantin at least for the time being. I wanted to give him IV, but I am somewhat concerned with his blood pressure at 98/60. I am concerned with giving oral because I do not have all the absorption will be. Because of that, I am going to try a combination of that, I will give him [address] [place] [address] CONSULTATION Name: DAYANNA DANGVa Dougherty Room: [address] IN M.R.#: [id number] Admission: 08/21/20 Attend Phys: Farhat Courtney Discharge: 08/28/20 Date of : 68 Report #: [id number] of oral now then I will try to give him 100 mg every 4 hours IV to see how he tolerates that. If he tolerated that well, we may give him a full dose. I did talk to him about alternate of Depakote, Vimpat, Topamax, Lamictal, and virtually all the anticonvulsant. I think rapid control of his seizures are desired because he is having increasingly more seizures. I talked to the nurse looking after this patient. I discussed his option and he wants to follow this plan and we will do that. More than 50 minutes of time was spent taking care of this patient today and majority was spent counseling and coordinating. <ELECTRONICALLY SIGNED> By: Talon Daniels MD 09/01/20 1351 1527 1720Talon Daniels MD /nt
== END 2020-08-28 14:15 | disposition home or self-care (01) | DRG 98 ==
LOC: M.ERS 16:24 → M.TBA-ER 18:25 → M.2W 22:35
PROVIDERS: Internal Medicine; Physician Assistant; Psychiatry & Neurology Neuromuscular Medicine; ADMIT Internal Medicine; ATTEND Internal Medicine
PROC: 009U3ZX Drainage of Spinal Canal, Percutaneous Approach, Diagnostic (ICD-10-PCS; principal; 2020-08-25)
PROC: B01B1ZZ Fluoroscopy of Spinal Cord using Low Osmolar Contrast (ICD-10-PCS; principal; 2020-08-25)
DX: A86 Unspecified viral encephalitis (principal); G40.109 Localization-related (focal) (partial) symptomatic epilepsy and epileptic syndromes with simple partial seizures, not intractable, without status epilepticus; E87.1 Hypo-osmolality and hyponatremia; G92 Toxic encephalopathy; T50.995A Adverse effect of other drugs, medicaments and biological substances, initial encounter; Y92.89 Other specified places as the place of occurrence of the external cause; J32.9 Chronic sinusitis, unspecified; G93.89 Other specified disorders of brain; E86.0 Dehydration; R07.9 Chest pain, unspecified; E78.5 Hyperlipidemia, unspecified; J84.10 Pulmonary fibrosis, unspecified; F12.90 Cannabis use, unspecified, uncomplicated; Z20.828 Contact with and (suspected) exposure to other viral communicable diseases; Z79.899 Other long term (current) drug therapy; Z87.891 Personal history of nicotine dependence; Z79.82 Long term (current) use of aspirin; Z23 Encounter for immunization

== ENCOUNTER → 2020-08-30 | Outpatient (CLI) | payer OTHER ==
[~2020-08-30] MED LIST changes: +DILANTIN100 MG PO; +KEPPRA 500 MG500 M1 PO; +PHENYTOIN SODI300 MG PO; +TRILEPTAL300 MG PO
== END ==
LOC: M.LAB 12:29
PROVIDERS: ATTEND Psychiatry & Neurology Neuromuscular Medicine
DX: R56.9 Unspecified convulsions (principal)

== ENCOUNTER → 2020-09-06 | Outpatient (CLI) | payer OTHER ==
[2020-09-06 12:53] LABS: HEMATOCRIT 45.8 % (42.0-52.0); HEMOGLOBIN 15.3 gm/dL (14.0-18.0); MCH 30.3 pg (26.0-34.0); MCHC 33.3 g/dL (28.0-37.0); MPV 7.1 fl. (7.2-11.1); RBC 5.04 mil/uL (4.50-6.00); RDW-CV 13.2 % (10.5-14.5); WBC 6.9 thou/uL (4.0-11.0)
[2020-09-06 13:02] LABS: ALBUMIN 3.6 g/dL (3.4-5.0); CALCIUM 8.9 mg/dL (8.5-10.1); CREATININE 0.9 mg/dL (0.6-1.3); POTASSIUM 4.3 mmol/L (3.5-5.1); TOTAL BILIRUBIN 0.1 mg/dL (<0.1-1.0); TOTAL PROTEIN 7.1 g/dL (6.4-8.2)
== END ==
LOC: M.LAB 12:26
PROVIDERS: ATTEND Psychiatry & Neurology Neuromuscular Medicine
DX: G40.89 Other seizures (principal)

== ENCOUNTER 2020-09-09 14:35 | Emergency (ER) | payer OTHER ==
[~2020-09-09] VITALS: Ht 177.8 cm; Wt 97.5 kg
[2020-09-09 15:04] LABS: ABSOLUTE EOSINOPHILS 0.2 thou/uL (0.0-0.7); ABSOLUTE LYMPHOCYTES 2.3 thou/uL (0.8-5.3); ABSOLUTE MONOCYTES 0.8 thou/uL (0.0-1.2); ABSOLUTE NEUTROPHILS 4.3 thou/uL (1.6-8.1); BASOPHILS 0.2 %; EOSINOPHILS 3.1 %; HEMATOCRIT 42.8 % (42.0-52.0); HEMOGLOBIN 14.6 gm/dL (14.0-18.0); LYMPHOCYTES 30.4 %; MCH 30.8 pg (26.0-34.0); MCHC 34.2 g/dL (28.0-37.0); MCV 90.1 fL (80.0-100.0); MONOCYTES 10.4 %; NUCLEATED RBCS 0 /100WBC; PLATELET COUNT* 312 thou/uL (150-400); POLYS 55.9 %; RBC 4.75 mil/uL (4.50-6.00); WBC 7.6 thou/uL (4.0-11.0)
[2020-09-09 15:20] LABS: CALCIUM 8.6 mg/dL (8.5-10.1); CREATININE 0.9 mg/dL (0.6-1.3); POTASSIUM 4.1 mmol/L (3.5-5.1)
[2020-09-09 15:23] LABS: PROTIME 10.4 Seconds (9.20-11.50)
[2020-09-09 15:31] LABS: ALBUMIN 3.5 g/dL (3.4-5.0); MAGNESIUM 1.9 mg/dL (1.8-2.4); TOTAL BILIRUBIN 0.1 mg/dL (<0.1-1.0); TOTAL PROTEIN 6.4 g/dL (6.4-8.2)
[2020-09-09 17:24] VITALS: BP 124/73
--- NOTE | 2020-09-10 11:50 | EKG ---
[place] [address] ELECTROCARDIOGRAM REPORT Name: ALMA DANG Room: [facility]#: [id number] Admission: 09/09/20 Attend Phys: Discharge: 09/09/20 Date of : [birth year] Date of Service: 09/09/20 1629 Report #: [id number] THIS REPORT FOR: //name// [facility] ED Test Date: 2020-09-09 Test Time: 16:29:33 Pat Name: ALMA DANG Department: Room: Gender: Industrial X Ray Operator: [facility] : 1970 Requested By: Dimitris Carolina Order Number: [id number] MD: Clemente Espana Measurements Intervals [place] Rate: 68 P: 48 [place]: 188 QRS: -29 QRSD: 94 T: 63 QT: 382 QTc: 407 Interpretive Statements Sinus rhythm Borderline left axis deviation Compared to ECG 08/25/2020 18:36:50 No significant changes Electronically Signed On 09-10-2020 11:50:00 FELT STRIP FINISHER by Clemente Espana [email or web address] <ELECTRONICALLY SIGNED> By: Clemente Espana MD, [facility] 09/10/20 1150 1629 1629 Clemetne Espana MD, [facility] /EPI
--- NOTE | 2020-09-11 13:44 | EKG ---
[place] [address] ELECTROCARDIOGRAM REPORT Name: ALMA DANG Farhat Room: [facility]#: [id number] Admission: 09/09/20 Attend Phys: Discharge: 09/09/20 Date of : [birth year] Date of Service: 09/09/20 1452 Report #: [id number] THIS REPORT FOR: //name// [facility] ED Test Date: 2020-09-09 Test Time: 14:52:32 Pat Name: ALMA DANG Department: Room: Gender: Internal Controls Analyst: [facility] : 1970 Requested By: Dimitris Carolina Order Number: [id number] MD: Clemente Espana Measurements Intervals [place] Rate: 75 P: 47 [place]: 184 QRS: -9 QRSD: 96 T: 56 QT: 373 QTc: 417 Interpretive Statements Sinus rhythm Compared to ECG 08/25/2020 18:36:50 No significant changes Electronically Signed On 09-11-2020 13:44:03 NEWSPAPER REPORTER by Clemente Espana [email or web address] <ELECTRONICALLY SIGNED> By: Clemente Espana MD, [facility] 09/11/20 1344 1452 1452 Clemente Espana MD, [facility] /EPI
== END 2020-09-09 17:24 | disposition home or self-care (01) ==
LOC: M.ERS 14:35
PROVIDERS: Emergency Medicine Emergency Medical Services
DX: R07.89 Other chest pain (principal); R79.9 Abnormal finding of blood chemistry, unspecified; Z20.828 Contact with and (suspected) exposure to other viral communicable diseases

== ENCOUNTER → 2020-09-12 | Outpatient (CLI) | payer OTHER ==
[2020-09-13 05:08] LABS: HEPATITIS B SURFACE AG Negative (Negative)
[2020-09-13 15:07] LABS: ANA INTERPRETATION Negative (Negative)
== END ==
LOC: M.LAB 09:16
PROVIDERS: ATTEND Internal Medicine Gastroenterology
DX: R74.8 Abnormal levels of other serum enzymes (principal)

== ENCOUNTER → 2020-09-12 | Outpatient (CLI) | payer OTHER | LOC: M.ULTRA 09:00 | PROVIDERS: ATTEND Internal Medicine Gastroenterology | DX: R79.89 Other specified abnormal findings of blood chemistry (principal) ==

== ENCOUNTER → 2020-09-14 | Outpatient (CLI) | payer OTHER ==
[2020-09-14 10:45] LABS: ABSOLUTE BASOPHILS 0.1 thou/uL (0.0-0.2); ABSOLUTE EOSINOPHILS 0.3 thou/uL (0.0-0.7); ABSOLUTE LYMPHOCYTES 2.3 thou/uL (0.8-5.3); ABSOLUTE MONOCYTES 0.6 thou/uL (0.0-1.2); BASOPHILS 1.2 %; EOSINOPHILS 4.3 %; HEMATOCRIT 44.3 % (42.0-52.0); HEMOGLOBIN 14.8 gm/dL (14.0-18.0); LYMPHOCYTES 37.3 %; MCH 30.3 pg (26.0-34.0); MCHC 33.4 g/dL (28.0-37.0); MCV 90.8 fL (80.0-100.0); MONOCYTES 9.8 %; MPV 7.3 fl. (7.2-11.1); NUCLEATED RBCS 0 /100WBC; PLATELET COUNT* 279 thou/uL (150-400); POLYS 47.4 %; RBC 4.87 mil/uL (4.50-6.00); WBC 6.3 thou/uL (4.0-11.0)
[2020-09-14 11:06] LABS: ALBUMIN 3.5 g/dL (3.4-5.0); CREATININE 0.9 mg/dL (0.6-1.3); POTASSIUM 4.4 mmol/L (3.5-5.1); TOTAL BILIRUBIN 0.2 mg/dL (<0.1-1.0); TOTAL PROTEIN 6.9 g/dL (6.4-8.2)
== END ==
LOC: M.LAB 10:29
PROVIDERS: ATTEND Psychiatry & Neurology Neuromuscular Medicine
DX: G40.211 Localization-related (focal) (partial) symptomatic epilepsy and epileptic syndromes with complex partial seizures, intractable, with status epilepticus (principal)

== ENCOUNTER → 2020-09-25 | Outpatient (CLI) | payer OTHER ==
[2020-09-25 11:37] LABS: ABSOLUTE BASOPHILS 0.1 thou/uL (0.0-0.2); ABSOLUTE EOSINOPHILS 0.3 thou/uL (0.0-0.7); ABSOLUTE LYMPHOCYTES 2.7 thou/uL (0.8-5.3); ABSOLUTE MONOCYTES 0.9 thou/uL (0.0-1.2); ABSOLUTE NEUTROPHILS 2.7 thou/uL (1.6-8.1); BASOPHILS 1.3 %; EOSINOPHILS 4.7 %; HEMATOCRIT 43.2 % (42.0-52.0); HEMOGLOBIN 14.9 gm/dL (14.0-18.0); LYMPHOCYTES 40.3 %; MCH 30.7 pg (26.0-34.0); MCHC 34.4 g/dL (28.0-37.0); MCV 89.2 fL (80.0-100.0); MONOCYTES 12.8 %; MPV 7.3 fl. (7.2-11.1); NUCLEATED RBCS 0 /100WBC; PLATELET COUNT* 273 thou/uL (150-400); POLYS 40.9 %; RBC 4.85 mil/uL (4.50-6.00); WBC 6.7 thou/uL (4.0-11.0)
[2020-09-25 11:50] LABS: ALBUMIN 3.7 g/dL (3.4-5.0); CALCIUM 8.9 mg/dL (8.5-10.1); CREATININE 0.9 mg/dL (0.6-1.3); POTASSIUM 4.3 mmol/L (3.5-5.1); TOTAL BILIRUBIN 0.2 mg/dL (<0.1-1.0)
== END ==
LOC: M.MRI 11:17
PROVIDERS: ATTEND Psychiatry & Neurology Neuromuscular Medicine
DX: J32.2 Chronic ethmoidal sinusitis (principal); J32.3 Chronic sphenoidal sinusitis; G40.211 Localization-related (focal) (partial) symptomatic epilepsy and epileptic syndromes with complex partial seizures, intractable, with status epilepticus

== ENCOUNTER → 2020-10-26 | Outpatient (CLI) | payer OTHER ==
[2020-10-26 16:24] LABS: ABSOLUTE BASOPHILS 0.1 thou/uL (0.0-0.2); ABSOLUTE EOSINOPHILS 0.3 thou/uL (0.0-0.7); ABSOLUTE LYMPHOCYTES 2.6 thou/uL (0.8-5.3); ABSOLUTE MONOCYTES 0.8 thou/uL (0.0-1.2); ABSOLUTE NEUTROPHILS 4.1 thou/uL (1.6-8.1); BASOPHILS 1.1 %; EOSINOPHILS 4.2 %; HEMATOCRIT 43.2 % (42.0-52.0); HEMOGLOBIN 14.5 gm/dL (14.0-18.0); LYMPHOCYTES 33.2 %; MCH 29.9 pg (26.0-34.0); MCHC 33.7 g/dL (28.0-37.0); MCV 88.8 fL (80.0-100.0); MONOCYTES 9.9 %; MPV 7.3 fl. (7.2-11.1); NUCLEATED RBCS 0 /100WBC; PLATELET COUNT* 312 thou/uL (150-400); POLYS 51.6 %; RBC 4.86 mil/uL (4.50-6.00); RDW-CV 12.9 % (10.5-14.5); WBC 7.9 thou/uL (4.0-11.0)
[2020-10-26 16:35] LABS: ALBUMIN 3.6 g/dL (3.4-5.0); CALCIUM 8.8 mg/dL (8.5-10.1); CREATININE 0.9 mg/dL (0.6-1.3); POTASSIUM 4.2 mmol/L (3.5-5.1); TOTAL BILIRUBIN 0.1 mg/dL (<0.1-1.0); TOTAL PROTEIN 6.8 g/dL (6.4-8.2)
[2020-10-26 17:23] LABS: ESR (SEDRATE) 7 mm/hr (0-20)
== END ==
LOC: M.MRI 16:00
PROVIDERS: ATTEND Psychiatry & Neurology Neuromuscular Medicine
DX: G40.211 Localization-related (focal) (partial) symptomatic epilepsy and epileptic syndromes with complex partial seizures, intractable, with status epilepticus (principal); R51.9 Headache, unspecified; H53.9 Unspecified visual disturbance

== ENCOUNTER → 2021-03-02 | Outpatient (CLI) | payer OTHER | LOC: M.MRI 07:38 | PROVIDERS: ATTEND Psychiatry & Neurology Neuromuscular Medicine | DX: J32.8 Other chronic sinusitis (principal); G40.211 Localization-related (focal) (partial) symptomatic epilepsy and epileptic syndromes with complex partial seizures, intractable, with status epilepticus; R51.9 Headache, unspecified ==